=== PATIENT | male | born 1940 | race Caucasian/White ===

== ENCOUNTER 2017-07-15 12:45 | Inpatient (IN) | payer OTHER ==
[~2017-07-15] VITALS: Ht 167.6 cm; Wt 96.2 kg
[2017-07-15] MEDS ORDERED: ASPIRIN 81MG TABLET PO STA (14:39)
[2017-07-15] MEDS ORDERED: NITROGLYCERIN 0.4MG TABLET SL SL PRN (14:45)
[2017-07-15] MEDS ORDERED: CLONIDINE 0.2MG TABLET PO ONE (14:45)
[2017-07-15 15:04] LABS: BASOPHILS % 0.5 % (0.0-2.0); EOSINOPHILS % 0.2 % (0.0-5.0); HEMATOCRIT. 41.5 % (42.0-52.0); HEMOGLOBIN. 13.8 g/dL (14.0-18.0); LYMPHOCYTES % 10.6 % (20.0-50.0); MEAN CORPUSCULAR HEMOGLOBIN 27.9 pg (28.0-32.0); MEAN CORPUSCULAR VOLUME 83.9 fL (80.0-94.0); MEAN PLATELET VOLUME 8.3 fl (7.4-10.4); MONOCYTES % 12.3 % (2.0-8.0); NEUTROPHILS % 76.4 % (40.0-76.0); PLATELET 315 x1000/uL (130-400); RED BLOOD CELL COUNT 4.95 mill/uL (4.7-6.1); RED CELL DISTRIBUTION WIDTH 15.9 % (11.6-14.6)
[2017-07-15 15:09] LABS: INR 2.1; PROTHROMBIN TIME 21.5 sec (9.4-11.6)
[2017-07-15 15:14] LABS: CHLORIDE 108 mEq/L (98-107)
[2017-07-15] MEDS ORDERED: FUROSEMIDE 40MG/4ML VIAL IVP ONE (16:30)
[2017-07-15 18:40] VITALS: BP 144/107
[2017-07-15] MEDS ORDERED: HYDROCODONE/ACETAMINOPHEN 5/325MG TABLET PO PRN (19:00)
[2017-07-15] MEDS ORDERED: MAGNESIUM/ALUMINUM HYDROXIDE/SIMETHICONE 30ML UDC PO PRN (19:00)
[2017-07-15] MEDS ORDERED: NA PHOS,M-B/NA PHOS,DI-BA ENEMA 118ML PR PRN (19:00)
[2017-07-15] MEDS ORDERED: ENOXAPARIN 40MG/0.4ML SYR SUBCUT SCH (19:00)
[2017-07-15] MEDS ORDERED: LORAZEPAM 2MG/ML CPJ IV PRN (19:00)
[2017-07-15] MEDS ORDERED: GUAIFENESIN 200MG/10ML SUGAR FREE UDC PO PRN (19:00)
[2017-07-15] MEDS ORDERED: ACETAMINOPHEN 325MG TABLET PO PRN (19:00)
[2017-07-15] MEDS ORDERED: ONDANSETRON HCL 4MG/2ML VIAL IV PRN (19:00)
[2017-07-15] MEDS ORDERED: DOCUSATE SODIUM 100MG CAPSULE PO PRN (19:00)
[2017-07-15] MEDS ORDERED: IPRATROPIUM/ALBUTEROL 0.5-3(2.5)MG/3ML NEB INH PRN (19:00)
[2017-07-15] MEDS ORDERED: MORPHINE SULFATE 4 MG/ML CPJ (NOT FOR IM USE) IV PRN (19:15)
[2017-07-15 20:00] VITALS: BP 146/113
[2017-07-15] MEDS: LEVOFLOXACIN 500MG PREMIX 100 ML IV SCH (20:54)
[2017-07-15] MEDS: CLONIDINE 0.1MG TABLET PO PRN (22:42)
[2017-07-16] VITALS: BP 125/80
[2017-07-16 04:00] VITALS: BP 144/107
[2017-07-16 06:11] LABS: BASOPHILS % 0.6 % (0.0-2.0); HEMATOCRIT. 36.7 % (42.0-52.0); HEMOGLOBIN. 12.2 g/dL (14.0-18.0); LYMPHOCYTES % 14.9 % (20.0-50.0); MEAN CORPUSCULAR HEMOGLOBIN 27.2 pg (28.0-32.0); MEAN CORPUSCULAR VOLUME 81.8 fL (80.0-94.0); MEAN PLATELET VOLUME 8.3 fl (7.4-10.4); NEUTROPHILS % 71.5 % (40.0-76.0); PLATELET 275 x1000/uL (130-400); RED BLOOD CELL COUNT 4.49 mill/uL (4.7-6.1); RED CELL DISTRIBUTION WIDTH 15.7 % (11.6-14.6)
[2017-07-16] MEDS: CLONIDINE 0.1MG TABLET PO PRN (06:19)
[2017-07-16 07:26] LABS: CHLORIDE 108 mEq/L (98-107)
[2017-07-16 07:36] LABS: HDL CHOLESTEROL 26 mg/dL (40-59); LDL CHOLESTEROL 87 mg/dL (5-100); T4 FREE 1.37 ng/dL (0.76-1.46)
[2017-07-16] MEDS ORDERED: ASPIRIN 81MG EC TABLET PO SCH (09:00)
[2017-07-16] MEDS: FUROSEMIDE 40MG/4ML VIAL IV SCH (09:22)
[2017-07-16 12:00] VITALS: BP 146/92
[2017-07-16] MEDS: LOSARTAN POTASSIUM 50 MG TABLET PO SCH (14:56)
[2017-07-16 16:00] VITALS: BP 155/98
[2017-07-16 17:29] LABS: T4 FREE 1.24 ng/dL (0.76-1.46)
[2017-07-16] MEDS ORDERED: METF-516 PO (19:03)
[2017-07-16] MEDS ORDERED: METO25TA6 PO (19:07)
[2017-07-16] MEDS ORDERED: LOSA50TA20 PO (19:07)
[2017-07-16] MEDS ORDERED: APIX5TAB PO (19:07)
[2017-07-16 20:00] VITALS: BP 133/89
[2017-07-16] MEDS: LEVOFLOXACIN 500MG PREMIX 100 ML IV SCH (20:41)
[2017-07-16] MEDS: APIXABAN 5 MG TABLET PO SCH (21:44)
[2017-07-16] MEDS: CARVEDILOL 3.125 MG TABLET PO SCH (21:54)
[2017-07-16 23:08] LABS: CREATINE KINASE 93 IU/L (39-308)
[2017-07-16 23:09] LABS: CREATINE KINASE MB FRACTION 6.8 ng/mL (0.5-3.6)
[2017-07-17] VITALS: BP 119/68
[2017-07-17 04:00] VITALS: BP 138/94
[2017-07-17 08:00] VITALS: BP 148/82
[2017-07-17] MEDS: FUROSEMIDE 40MG/4ML VIAL IV SCH (08:29)
[2017-07-17] MEDS: APIXABAN 5 MG TABLET PO SCH ×2 (08:30→17:51)
[2017-07-17] MEDS: CARVEDILOL 3.125 MG TABLET PO SCH (08:30)
[2017-07-17] MEDS: LOSARTAN POTASSIUM 50 MG TABLET PO SCH (08:32)
[2017-07-17 08:34] LABS: CREATINE KINASE 73 IU/L (39-308); CREATINE KINASE MB FRACTION 5.6 ng/mL (0.5-3.6)
[2017-07-17] MEDS ORDERED: APIXABAN 5 MG TABLET PO SCH (09:00)
[2017-07-17] MEDS ORDERED: ASPIRIN 81MG TABLET PO SCH (09:00)
[2017-07-17 11:26] VITALS: BP 122/62
[2017-07-17 12:00] VITALS: BP 136/78
[2017-07-17 16:00] VITALS: BP 122/78
[2017-07-17 16:31] LABS: CREATINE KINASE 66 IU/L (39-308); CREATINE KINASE MB FRACTION 5.1 ng/mL (0.5-3.6)
[2017-07-17] MEDS ORDERED: LEVOFLOXACIN 500MG TABLET PO SCH (21:00)
== END 2017-07-17 18:10 | disposition home or self-care (01) | DRG 291 ==
LOC: ER 13:52 → 6WST 16:35 → EDBEDREQ 16:40 → EDBEDREQTM 16:40 → ENRESERV 16:45
PROVIDERS: ADMIT Internal Medicine; ATTEND Internal Medicine
DX: I11.0 Hypertensive heart disease with heart failure (principal); J96.00 Acute respiratory failure, unspecified whether with hypoxia or hypercapnia; E44.0 Moderate protein-calorie malnutrition; R65.10 Systemic inflammatory response syndrome (SIRS) of non-infectious origin without acute organ dysfunction; E11.69 Type 2 diabetes mellitus with other specified complication; I48.2 Chronic atrial fibrillation; R07.89 Other chest pain; I25.10 Atherosclerotic heart disease of native coronary artery without angina pectoris; I50.33 Acute on chronic diastolic (congestive) heart failure; J44.9 Chronic obstructive pulmonary disease, unspecified; Z95.5 Presence of coronary angioplasty implant and graft; E78.5 Hyperlipidemia, unspecified; Z79.01 Long term (current) use of anticoagulants; Z79.82 Long term (current) use of aspirin; Z86.73 Personal history of transient ischemic attack (TIA), and cerebral infarction without residual deficits; Z68.34 Body mass index [BMI] 34.0-34.9, adult
CPT/HCPCS: 36415; 71045; 80048; 80053; 80061; 82550; 82553; 83036; 83880; 84439; 84443; 84484; 85025; 85379; 85610; 85730; 93005; 93306; 96374; 99285; J1940; J1956; J7050